=== PATIENT | female | born 2005 | race Caucasian/White ===

== ENCOUNTER → 2025-09-26 12:45 | Outpatient (CLI) | payer OTHER, SELFPAY ==
--- NOTE | 2025-09-26 12:50 | DI.US.S_ITS ---
PROCEDURE: US OB <= 14 WEEKS FETUS INDICATIONS: 1ST TRIMESTER, HEART OUTSIDE/PRIOR DATING DATA: Last menstrual period (LMP): 07/19/2025 LMP-based estimated date of delivery (BRIANNA): 04/25/2026 First dating scan (date and location): 09/26/2025 Estimated date of delivery (BRIANNA) from first dating scan: 04/14/2026 TECHNIQUE: Real-time scanning was performed of the fetus and maternal pelvic organs, with image documentation. COMPARISON: None. FINDINGS: Embryo: Intrauterine gestational sac is seen with pole. [place]-rump length is 4.7 cm, compatible with an estimated gestational age of 11 weeks 3 days. Heart rate: 162 beats per minute Maternal organs: Left ovary is not visualized. Right ovary is within normal limits. IMPRESSION: Single live intrauterine is seen with estimated gestational age of 11 weeks 3 days, corresponding to an ultrasound BRIANNA of 04/14/2026, which is discordant with clinical dates. Approved by: Shamar Yousif M.D. on 09/26/2025 at 15:27
== END ==
PROVIDERS: Referring Provider Midwife; Visit Provider Midwife
DX: Z34.81 Encounter for supervision of other normal pregnancy, first trimester (principal); Z3A.11 11 weeks gestation of pregnancy
CPT/HCPCS: 76801